=== PATIENT | male | born 1975 | race Caucasian/White ===

== ENCOUNTER 2022-04-16 18:09 | Observation (INO) | payer BC, SELFPAY ==
[2022-04-16] VITALS (8 sets, daily range): BP systolic 154–172; BP diastolic 78–96; PULSE 62–68; RESP 16–18; TEMP 36.8–37.1; O2SAT 94–100; BMI 39.9; BMI 39.6
--- NOTE | 2022-04-16 18:13 | ED.RN ---
CALLED FOR ECG
--- NOTE | 2022-04-16 18:14 | EKG12_ITS ---
Test Reason : CP Blood Pressure : / mmHG Vent. Rate : 074 BPM Atrial Rate : 074 BPM P-R Int : 146 ms QRS Dur : 088 ms QT Int : 396 ms P-R-T Axes : 071 006 038 degrees QTc Int : 439 ms Sinus rhythm with Premature atrial complexes Low voltage QRS (Limb Leads) Abnormal ECG Confirmed by CLINT SPRINGER, PITER ([id number]), editorial cartoonist JOSE G CALLE ([id number]) on 04/18/2022 9:41:12 AM Referred By: Confirmed By:PITER JARAMILLO MD
[2022-04-16 18:30] LABS: Absolute Lymphocyte Count 2.05 X10^3/uL (0.83-4.51); Absolute Neutrophil Count 7.1 X10^3/uL (2.0-7.7); Basophil# 0.04 X10^3/uL; Basophil% 0.4 % (0-1); Eosinophil# 0.07 X10^3/uL; Eosinophils% 0.7 % (0-5); Hemoglobin 15.6 g/dL (13.0-16.5); Lymphocyte # 2.05 X10^3/ul (0.83-4.51); Lymphocyte % 20.1 % (19-41); Mean Corp Hgb Conc 31.2 g/dL (32-36); Mean Corpuscular Hgb 27.4 pg (27.0-32.0); Mean Corpuscular Volume 87.9 fL (80-94); Mean Platelet Vol. 8.4 fl (6.2-12.0); Monocyte# 0.87 X10^3/uL; Monocyte% 8.5 % (0-10); NRBC Flagged by Analyzer 0 % (0-5); Neutrophil # 7.14 X10^3/uL (2.7-7.7); Platelet Count 252 K/mm3 (150-450); RBC Distribution Width CV 13.3 % (11.6-14.6); RBC Distribution Width SD 42.8 fl (35.1-43.9); Red Blood Count 5.69 M/mm3 (4.6-6.2); White Blood Count 10.2 K/mm3 (4.4-11.0)
[2022-04-16 18:48] LABS: Anion Gap 2 (5-15); BUN 10 mg/dL (7-18); Calcium,Total 9.3 mg/dL (8.5-10.1); Chloride 104 mmol/L (98-107); Creatinine, Serum 0.77 mg/dL (0.70-1.30); EST Glomerular Filtration Rate 115 mL/min (>60); Est Glom Filt Rate - Afr Amer 139 mL/min (>60); Estimated Creatinine Clearance 112.27 ml/min; Glucose 140 mg/dL (74-106); Potassium 3.9 mmol/L (3.5-5.1); Sodium Level 138 mmol/L (136-145); Troponin-I HS 32 pg/mL (3.0-78.0)
--- NOTE | 2022-04-16 19:10 | CT_ITS ---
STUDY: CTA CHEST REASON FOR EXAM: Male, 47 years old. cp RADIATION DOSAGE (If Supplied By Facility): CTDIvol = ( 11.48 ) mGy, DLP = ( 581.81 ) mGycm TECHNIQUE: The examination was performed with the intravenous administration of IV 100mL Isovue-370. Post-processing of the angiographic images was performed, with multiplanar reformation and 3D reconstruction. Individualized dose optimization techniques were used for this CT. COMPARISON: None. FINDINGS: Tubes and lines: 1. No life-support noted. CTA: PULMONARY ARTERIES: There is normal configuration and contrast opacification of pulmonary outflow tract, main pulmonary arteries, segmental and intersegmental pulmonary arteries bilaterally without evidence of intraluminal filling defects. AORTIC ARCH: The aortic arch and descending aorta have normal configuration. No evidence of dissection or aneurysmal dilatation. HEART: Cardiac contour is normal. No evidence pericardial effusion. CT CHEST: LUNGS: [Unremarkable. No mass. No consolidation. PLEURAL SPACES: Unremarkable, no effusion or pneumothorax.. MEDIASTINUM AND LYMPH NODES: Unremarkable. No significant adenopathy. BONES: Mild thoracic spondylosis with anterior marginal osteophytes. No acute bony changes or canal stenosis. Postoperative changes consistent with anterior fixation of the lower cervical spine. ABDOMEN: Within normal limits. Other: Incidental note of symmetric masses. IMPRESSIONS: 1. No CTA evidence of pulmonary embolism. 2. No CTA evidence of aortic aneurysm or dissection 3. Normal CT appearance of the heart and pericardium. 4. No focal infiltrate consolidation or effusion noted. 5. Incidental note of symmetric gynecomastia. Electronically Signed: Sammy Barrientos MD at 20:00 EST , CT/CTA Chest W/WO Contrast IMPRESSION: undefined
--- NOTE | 2022-04-16 19:12 | EDS_ITS ---
HPI History of Present Illness Chief Complaint: Chest Pain Informant: patient Onset/Context/Timing Onset: Today Quality: Positive for Heaviness and Pressure Location: Left Parasternal Current Severity: Mild Maximum Severity: Severe Associated Symptoms: Positive for Diaphoresis and Dyspnea Narrative Narrative: Patient presents secondary to chest pain. He had an optometry appointment at 3:00 this afternoon. While sitting in the waiting room he broke out in a sweat. During his exam he developed chest pain that radiated to his back. He states he was so uncomfortable he had to leave his appointment. He denies personal history of cardiac disease. He does have family history in both his father and paternal grandfather. He states his pain is currently improved from the most severe, but is certainly not resolved. PFSH PFSH Medical History no medical history no medical history Allergy/AdvReac Type Severity Reaction Status Date / Time No Known Allergies Allergy Verified 04/16/22 18:11 Social History Smoking Status: Current every day smoker tobacco type: cigarettes ROS ROS ED Constitutional Constitutional ED: Denies chills or fever(s) Eyes Eyes: Denies change in vision or discharge from eye(s) ENT ENT ED: Denies discharge from eye(s), rhinorrhea or sore throat Cardiovascular Cardiovascular: Reports chest pain; Denies palpitations Respiratory/Chest Respiratory/Chest: Reports dyspnea; Denies cough Gastrointestinal Gastrointestinal: Denies abdominal pain, diarrhea, nausea or vomiting Genitourinary Genitourinary ED: Denies dysuria Musculoskeletal Musculoskeletal: Reports back pain; Denies extremity pain Integumentary Denies Abrasions or rash Neurologic Neurologic: Denies headache(s) or weakness Psychiatric Psychiatric: Denies anxiety or depression Allergic/Immunologic Allergic/Immunologic ED: Denies lip swelling or urticaria EXAM Physical Exam Const Vital Signs: 04/16/22 18:11 04/16/22 19:10 04/16/22 19:11 Temperature 98.7 F Temperature Source Temporal Pulse Rate 67 Respiratory Rate 17 Respiratory Effort Short of Breath Blood Pressure 167/96 H Blood Pressure Mean 119 Pulse Ox 98 97 Oxygen Delivery Method Room Air Room Air 04/16/22 19:12 Temperature Temperature Source Pulse Rate 68 Respiratory Rate 16 Respiratory Effort Blood Pressure Blood Pressure Mean Pulse Ox 98 Oxygen Delivery Method Room Air Positive well nourished and well developed General Appearance ED: well developed HEENT Reports normocephalic and head/scalp atraumatic Eyes PERRL and EOMs intact bilaterally Neck supple Chest Wall inspection of chest normal and palpation of chest normal Resp normal respiratory effort and clear to auscultation bilaterally Cardio regular rate and regular rhythm GI normal to inspection, nondistended, normoactive bowel sounds Palpation: soft Extremity normal to inspection Neuro oriented x3 and no sensory deficits noted Sensorium / Orientation: alert Motor Exam: strength 5/5 throughout Psych mental status grossly normal Skin no rashes or lesions noted Heart Score History: Highly Suspicious ECG: Normal Age: >45 - <65 years Risk Factors: No Risk Factors Troponin: </= Normal Limit Score: 3 MDM MDM MDM Narrative Medical decision making narrative: Patient is given aspirin on arrival. EKG, lab work obtained. Given the patient's story he is sent for CTA of the chest. Lab Data Attestation: I reviewed the patient's lab results. Labs: Laboratory Results - last 24 hr 04/16/22 04/16/22 18:24 18:24 WBC 10.2 RBC 5.69 Hgb 15.6 Hct 50.0 MCV 87.9 MCH 27.4 MCHC 31.2 L RDW Std Deviation 42.8 RDW Coeff of Asya 13.3 Plt Count 252 MPV 8.4 Immature Gran % (Auto) 0.300 Neut % (Auto) 70.0 Lymph % (Auto) 20.1 [place] % (Auto) 8.5 Eos % (Auto) 0.7 Baso % (Auto) 0.4 Absolute Neuts (auto) 7.1 Absolute Lymphs (auto) 2.05 Nucleated RBC % 0 Sodium 138 Potassium 3.9 Chloride 104 Carbon Dioxide 32.0 Anion Gap 2 L BUN 10 Creatinine 0.77 Estim Creat Clear Calc 112.27 Est GFR (MDRD) Af Amer 139 Est GFR (MDRD) Non-Af 115 BUN/Creatinine Ratio 13.0 Glucose 140 H Calcium 9.3 Troponin I High Sens 32 Radiography Diagnostic Testing: Clinical Impression(s) from Imaging Studies Chest CTA 04/16/22 19:10 IMPRESSION: undefined CTA chest: IMPRESSIONS: 1. No CTA evidence of pulmonary embolism. 2. No CTA evidence of aortic aneurysm or dissection 3. Normal CT appearance of the heart and pericardium. 4. No focal infiltrate consolidation or effusion noted. 5. Incidental note of symmetric gynecomastia. EKG Initial EKG: Attestation: I personally reviewed and interpreted this EKG as follows: Interpretation: Sinus Rhythm (Sinus at 74 with no acute ischemia.) Treatment and Re-Evaluation Narrative: CBC and chemistry studies unremarkable. Initial troponin is 32. CTA of the chest reveals no evidence of PE or dissection. 2-hour delta troponin is being drawn at this time, however given the patient's concerning story I do feel he warrants observation overnight and possible stress test tomorrow. I will speak with the hospitalist. Discharge Plan Triage Chief Complaint: Chest Pain ED Provider: Octavia Pritchard Dx/Rx/DC Orders Clinical Impression: Chest pain Primary Care Provider: Care Physician,No Primary Referrals: Care Physician,No Primary [Primary Care Provider] - Disposition Disposition: Acute Care Hospital [facility]
[2022-04-16] MEDS: Aspirin 81 MG TAB.CHEW 324 MG PO (19:16)
[2022-04-16 20:49] LABS: Troponin-I HS 29 pg/mL (3.0-78.0)
--- NOTE | 2022-04-16 21:08 | PCM.HP.STD ---
HPI - General General Date of Admission: 04/16/22 Date of Service: 04/16/22 Chief Complaint: Chest pain HPI Narrative PADMINI MOTTA, is a 47 M with a significant history of tobacco abuse and morbid obesity who presents to the emergency department with excruciating substernal chest pain that started about 2 and half hours prior to presentation. Patient went to see an eye doctor. While he was in the waiting room he was very diaphoretic. At the time of his eye examination patient had substernal chest pain that went to his back. He denies any aggravating ameliorating factors to the chest pain. The intensity of pain was about 8 out of 10. The pain was severe for about 20 minutes and then it gradually dissipated. At the emergency department initially he had only some slight chest pain but at the time of hospitalist examination he denied any chest pain. [facility] Medical History no medical history no medical history Home Medications NK 04/16/22 [History Last Taken Unknown] Allergy/AdvReac Type Severity Reaction Status Date / Time No Known Allergies Allergy Verified 04/16/22 18:11 Family History Other Heart disease Surgical History H/O shoulder surgery Social History Smoking Status: Current every day smoker tobacco type: cigarettes ROS ROS Narrative Pertinent positives and pertinent negatives as noted in HPI. All other systems were reviewed and are negative Vital Signs Vital Signs Vital Signs: 04/16/22 18:11 04/16/22 19:10 04/16/22 19:11 Temperature 98.7 F Temperature Source Temporal Pulse Rate 67 Respiratory Rate 17 Respiratory Effort Short of Breath Blood Pressure 167/96 H Blood Pressure Mean 119 Pulse Ox 98 97 Oxygen Delivery Method Room Air Room Air 04/16/22 19:12 04/16/22 20:33 Temperature Temperature Source Pulse Rate 68 62 Respiratory Rate 16 18 Respiratory Effort Blood Pressure 154/78 H Blood Pressure Mean 103 Pulse Ox 98 100 Oxygen Delivery Method Room Air Room Air Weight Weight: 119.3 kg Body Mass Index (BMI) 39.9 Physical Exam Narrative Physical exam: General: Well-nourished, well-developed. Head: Normocephalic, atraumatic, no tenderness Eyes: Vision is grossly intact. EOMI ENT, no trauma, moist mucous membranes, no rhinorrhea Neck: Nontender, No thyromegaly. CVS: Regular rate and rhythm. S1-S2 present. No murmur, gallop or rub. Respiratory : clear to auscultation bilaterally, chest wall nontender, no wheezing Abdomen: Soft, nontender, nondistended, normal bowel sounds, no masses : Deferred Back: Nontender, no CVA tenderness, no midline spinal tenderness, deformities, step-offs Extremities: Nontender full range of motion, no trauma Skin: Normal color, no trauma, abrasions Neuro: Alert, oriented, cranial nerves II through XII grossly intact. Psychiatry: Normal mood. Normal affect. Not depressed. Not anxious. Results Lab / Micro Data Result Diagrams: 04/16/22 18:24 04/16/22 18:24 Labs: Laboratory Results - last 24 hr 04/16/22 18:24: WBC 10.2, RBC 5.69, Hgb 15.6, Hct 50.0, MCV 87.9, MCH 27.4, MCHC 31.2 L, RDW Std Deviation 42.8, RDW Coeff of Asya 13.3, Plt Count 252, MPV 8.4, Immature Gran % (Auto) 0.300, Neut % (Auto) 70.0, Lymph % (Auto) 20.1, [place] % (Auto) 8.5, Eos % (Auto) 0.7, Baso % (Auto) 0.4, Absolute Neuts (auto) 7.1, Absolute Lymphs (auto) 2.05, Nucleated RBC % 0 04/16/22 18:24: Sodium 138, Potassium 3.9, Chloride 104, Carbon Dioxide 32.0, Anion Gap 2 L, BUN 10, Creatinine 0.77, Estim Creat Clear Calc 112.27, Est GFR (MDRD) Af Amer 139, Est GFR (MDRD) Non-Af 115, BUN/Creatinine Ratio 13.0, Glucose 140 H, Calcium 9.3, Troponin I High Sens 32 04/16/22 20:25: Troponin I High Sens 29 Radiology Impression Chest CTA 04/16/22 19:10 IMPRESSION: undefined Assessment & Plan Assessment/Plan (1) Chest pain: PLAN: Plan Chest pain Place on a monitored bed at progressive care unit CT was interpreted by radiologist as no acute process. Per my personal review there was no acute abnormality. Actual EKG tracing was independently visualized. EKG tracing showed Q waves in inferior leads and PACs. ASA 81 mg p.o. daily ordered SL NTG 0.4 mg prn as needed for chest pain ordered Morphine as needed for pain ordered We will check lipid panel. Stat EKG as needed for chest pain Stress test in the AM if the cardiac enzymes are negative High-sensitivity troponin x2 are negative. Trend. Elevated blood pressure diagnosis of hypertension. PRN Hydralazine ordered. DVT prophylaxis: SCD Charges/Coding Visit Charges Inpatient E&M: 22469 Init Hosp L2
--- NOTE | 2022-04-16 21:53 | EKG12_ITS ---
Test Reason : AM EKG Blood Pressure : / mmHG Vent. Rate : 065 BPM Atrial Rate : 065 BPM P-R Int : 144 ms QRS Dur : 086 ms QT Int : 426 ms P-R-T Axes : 050 000 037 degrees QTc Int : 443 ms Normal sinus rhythm Abnormal ECG Confirmed by CLINT SPRINGER, PITER ([id number]), photograph editor JOSE G CALLE ([id number]) on 04/18/2022 9:49:22 AM Referred By: Confirmed By:PITER JARAMILLO MD
[2022-04-17] VITALS (7 sets, daily range): BP systolic 146–154; BP diastolic 91–96; PULSE 61–73; RESP 16–18; TEMP 36.5–36.7; O2SAT 94–97
[2022-04-17 01:15] LABS: Troponin-I HS 33 pg/mL (3.0-78.0)
[2022-04-17] MEDS: Nitroglycerin (INPATIENT USE) 0.4 MG TAB.SUBL SL ×2 (03:50→09:36)
--- NOTE | 2022-04-17 05:55 | EKG12_ITS ---
Test Reason : ADMIT EKG Blood Pressure : / mmHG Vent. Rate : 064 BPM Atrial Rate : 064 BPM P-R Int : 150 ms QRS Dur : 090 ms QT Int : 422 ms P-R-T Axes : 071 003 039 degrees QTc Int : 435 ms Normal sinus rhythm Abnormal ECG Confirmed by CLINT SPRINGER, PITER ([id number]), international editorial producer JOSE G CALLE ([id number]) on 04/18/2022 9:50:51 AM Referred By: Confirmed By:PITER JARAMILLO MD
[2022-04-17] MEDS: Aspirin E.C. 81 MG Tablet PO (06:04)
[2022-04-17 07:21] LABS: Absolute Lymphocyte Count 2.62 X10^3/uL (0.83-4.51); Absolute Neutrophil Count 6.6 X10^3/uL (2.0-7.7); Basophil# 0.04 X10^3/uL; Basophil% 0.4 % (0-1); Eosinophil# 0.13 X10^3/uL; Eosinophils% 1.2 % (0-5); Hematocrit 47.4 % (40-54); Hemoglobin 14.9 g/dL (13.0-16.5); Lymphocyte # 2.62 X10^3/ul (0.83-4.51); Lymphocyte % 24.8 % (19-41); Mean Corp Hgb Conc 31.4 g/dL (32-36); Monocyte# 1.14 X10^3/uL; Monocyte% 10.8 % (0-10); NRBC Flagged by Analyzer 0 % (0-5); Neutrophil # 6.58 X10^3/uL (2.7-7.7); Neutrophil % 62.3 % (47-70); Platelet Count 266 K/mm3 (150-450); RBC Distribution Width CV 13.3 % (11.6-14.6); RBC Distribution Width SD 41.8 fl (35.1-43.9); Red Blood Count 5.51 M/mm3 (4.6-6.2); White Blood Count 10.6 K/mm3 (4.4-11.0)
[2022-04-17 07:52] LABS: Anion Gap 4 (5-15); BUN 11 mg/dL (7-18); BUN/Creat Ratio 17.8 RATIO (10-20); Calcium,Total 8.8 mg/dL (8.5-10.1); Chloride 106 mmol/L (98-107); Cholesterol 190 mg/dL (200); Creatinine, Serum 0.62 mg/dL (0.70-1.30); EST Glomerular Filtration Rate 147 mL/min (>60); Est Glom Filt Rate - Afr Amer 178 mL/min (>60); Estimated Creatinine Clearance 139.44 ml/min; Glucose 113 mg/dL (74-106); High Density Lipoprotein 30 mg/dL; Potassium 3.8 mmol/L (3.5-5.1); Sodium Level 139 mmol/L (136-145); Triglycerides 146 mg/dL; Very Low Density Lipoprotein 29 mg/dL (5-40)
--- NOTE | 2022-04-17 11:06 | STRESSREP_ITS ---
Stress Test Report Date: 04-17-2022 Procedure: Exercise tolerance test/imaging study Indications: Chest pain Consent: Per the patient Procedure: The patient exercised on a Macho protocol for 6 minutes completing Stage II achieving a peak heart rate of 141 bpm (82% predicted maximal heart rate) with resting blood pressure of 160/92 mmHg and a peak blood pressure 230/80 mmHg and a peak MET capacity of 7 METs. The baseline ECG demonstrated normal sinus rhythm. The peak exercise ECG demonstrated no obvious ECG changes. There was an isolated PVC during recovery. Blood pressure response: Resting hypertension-exaggerated response. The functional capacity was considered average. There was no complaint of chest discomfort during exercise or recovery. The examination was discontinued secondary to dyspnea. Impression: 1. Technically adequate (percent predicted maximal heart rate greater than 85%) exercise tolerance test 2. Peak exercise ECG with no obvious ECG changes 3. There was an isolated PVC during recovery 4. Blood pressure response: Resting hypertension-exaggerated response. 5. Nuclear images pending Myocardial perfusion imaging study: Technique: The patient was injected with 14.0 mCi of technetium 99m Cardiolite and subsequently rest SPECT Cardiolite nuclear imaging was obtained in the horizontal long, vertical long, and short axis views. The patient exercised on a Macho protocol for 6 minutes completing Stage II achieving a peak heart rate of 141 bpm (82% predicted maximal heart rate) with resting blood pressure of 160/92 mmHg and a peak blood pressure 230/80 mmHg and a peak MET capacity of 7 METs. The patient was injected with 44.3 mCi of technetium 99m Cardiolite and subsequently stress SPECT Cardiolite nuclear imaging was obtained in the horizontal long, vertical long, and short axis views. A gated Cardiolite study at peak stress was obtained. Interpretation: Rest and stress SPECT Cardiolite nuclear imaging status post realignment, normalization, and attenuation correction, demonstrates the appearance of relative uniform tracer uptake and myocardial perfusion appearing within normal limits. There is end systolic thickening and brightening. The gated Cardiolite study demonstrates myocardial thickening and inward wall motion. The reported LVEF is 66%. Impression: 1. Rest and stress SPECT Cardiolite nuclear imaging demonstrate relative uniform tracer uptake and myocardial perfusion appearing within normal limits. 2. The gated Cardiolite study reports an LVEF of 66%. This note was generated with PicBadges[employer] software. It may contain incorrect words, spelling, and punctuation that were not noted in checking the note before signing.
--- NOTE | 2022-04-17 12:51 | DCINST_ITS ---
Discharge Instructions Diet Discharge Diet: Low fat / Low cholesterol and 2000 mg Sodium Diet Activity Discharge Activity: Return to Normal Activity Follow Up Care Test Results: Test results from this visit will be discussed in further detail at your follow- up appointment, if applicable. Discharge Plan Admission Admit Date/Time: 04/16/22 20:59 Primary Reason for Your Visit: Acute chest pain Attending Provider: Floresita Díaz Primary Care Provider: Xavier Mercado,Radha Primary Consulting Providers: Aris Molina Instructions Additional Instructions / Restrictions: Your stress test was negative Continue to follow a low-salt, low-fat diet. Continue to remain active. You have been prescribed omeprazole for acid reflux type symptoms and also nicotine patch and gum. Discharge Orders/Prescriptions Prescriptions: New nicotine 21 mg/24 hr Patch 24 Hour 21 mg transdermal DAILY 28 Days Qty: 28 0RF pantoprazole 40 mg tablet,delayed release (DR/EC) 40 mg PO BID 30 Days Qty: 60 0RF nicotine (polacrilex) 2 mg gum 2 mg buccal Q2H 30 Days Qty: 100 0RF Referrals / Follow Up: Care Physician,No Primary [Primary Care Provider] - Disposition Disposition (needs filled in before D/C Order can be placed): Home, Self Care
--- NOTE | 2022-04-17 12:55 | CHAPLAIN ---
Type of Pastoral Visit _x__ Initial Visit ___ Follow-up Visit ___ On-call Visit ___ General Patient Visit ___ Spiritual Assessment ___ Family Conference ___ Bereavement ___ Rapid Response ___ Code Blue ___ Other (describe below) Pastoral Care Referral From _x__ Patient ___ Family ___ Nurse ___ Physician ___ College Or University Registrar ___ Mold Forms Builder ___ Other (describe below) Sacrament/Intervention _x__ Active listening ___ Anointing ___ Scientology ___ Bereavement ___ Communion ___ Katerina exploration ___ _x__ Life review ___ Prayer ___ Reconciliation ___ Sacrament of Sick ___ Supportive presence ___ Wedding ___ Other (describe below) Pastoral Comments patient describes his day yesterday with a decision to seek help for chest pain; pt had just received word that his tests are negative and thus he is feeling better/relieved; pt states that now he is focused on eating because it has been 24 hours since he had food; pt admits to need of making some changes in life choices for health improvement; pt states that yesterday he was anxious and that he agreed for spiritual care support; pt however states that he does not practice a katerina as such but was looking for someone to talk to; pt gives some life review; no other needs today
--- NOTE | 2022-04-17 13:00 | PCM.DC.SUM ---
Providers Date of Admission: 04/16/22 Date of Discharge: 04/17/22 Primary Care Physician: No Primary Care Phys Reason For Visit: CHEST PAIN Diagnosis Discharge Diagnosis (1) Chest pain: Status: Acute Code(s): R07.9 - Chest pain, unspecified Medications at Discharge Home Medications nicotine (polacrilex) 2 mg gum 2 mg buccal Q2H 30 days #100 ea 04/17/22 nicotine 21 mg/24 hr daily transdermal patch 21 mg transdermal DAILY 28 days #28 ea 04/17/22 pantoprazole 40 mg tablet,delayed release 40 mg PO BID 30 days #60 tabs 04/17/22 Hospital Course Operations None Procedures Stress test Summary of Care Provided Minutes Spent on Discharge: 25 Hospital Course: 47-year-old male with past medical history of nicotine dependence, morbid obesity who comes in with complaints of chest pain. He complains of intermittent substernal chest pain that however became continues to have hours prior to presentation. Patient was at an ophthalmology appointment when he started having the symptoms. He felt diaphoretic, felt like he was like a bad indigestion/acid reflux. He went to the [place] emergency room and was very crowded, and subsequently went to [place] emergency room where he could not be seen and then he came here. His initial EKG showed Q waves in inferior leads as well as PACs. He was admitted to the progressive care unit and monitored on telemetry. He underwent stress test that was unremarkable. Upon further discussion with patient and mother at bedside, 40 mg p.o. twice daily for about a month. Recommended strongly that he stop smoking. Nicotine patches indescribable discharge. He needs to follow-up with his primary care doctor within 1 week. Physical Exam Narrative Physical exam: General: Alert, Oriented x3, Cooperative, morbidly obese HEENT: Atraumatic Oral: Moist Mucosa Neck: Supple Lungs: Clear to auscultation Cardiovascular: HS I+II, regular, no murmurs Abdomen: Bowel Sounds Present, Soft, Non Tender Extremities: No edema Skin: No rashes, No breakdown Neurological: Grossly intact Psych/Mental Status: Appropriate Weight / BMI Weight Weight: 118.1 kg Body Mass Index (BMI) 39.6 ABG / Lab / Microbiology Data Result Diagrams: 04/17/22 06:33 04/17/22 06:33 Laboratory: Laboratory Results - last 24 hr 04/16/22 18:24: WBC 10.2, RBC 5.69, Hgb 15.6, Hct 50.0, MCV 87.9, MCH 27.4, MCHC 31.2 L, RDW Std Deviation 42.8, RDW Coeff of Asya 13.3, Plt Count 252, MPV 8.4, Immature Gran % (Auto) 0.300, Neut % (Auto) 70.0, Lymph % (Auto) 20.1, [place] % (Auto) 8.5, Eos % (Auto) 0.7, Baso % (Auto) 0.4, Absolute Neuts (auto) 7.1, Absolute Lymphs (auto) 2.05, Nucleated RBC % 0 04/16/22 18:24: Sodium 138, Potassium 3.9, Chloride 104, Carbon Dioxide 32.0, Anion Gap 2 L, BUN 10, Creatinine 0.77, Estim Creat Clear Calc 112.27, Est GFR (MDRD) Af Amer 139, Est GFR (MDRD) Non-Af 115, BUN/Creatinine Ratio 13.0, Glucose 140 H, Calcium 9.3, Troponin I High Sens 32 04/16/22 20:25: Troponin I High Sens 29 04/17/22 00:34: Troponin I High Sens 33 04/17/22 06:33: WBC 10.6, RBC 5.51, Hgb 14.9, Hct 47.4, MCV 86.0, MCH 27.0, MCHC 31.4 L, RDW Std Deviation 41.8, RDW Coeff of Asya 13.3, Plt Count 266, MPV 8.0, Immature Gran % (Auto) 0.500, Neut % (Auto) 62.3, Lymph % (Auto) 24.8, [place] % (Auto) 10.8 H, Eos % (Auto) 1.2, Baso % (Auto) 0.4, Absolute Neuts (auto) 6.6, Absolute Lymphs (auto) 2.62, Nucleated RBC % 0 04/17/22 06:33: Sodium 139, Potassium 3.8, Chloride 106, Carbon Dioxide 29.0, Anion Gap 4 L, BUN 11, Creatinine 0.62 L, Estim Creat Clear Calc 139.44, Est GFR (MDRD) Af Amer 178, Est GFR (MDRD) Non-Af 147, BUN/Creatinine Ratio 17.8, Glucose 113 H, Calcium 8.8, Triglycerides 146, Cholesterol 190, LDL Cholesterol 131 H, VLDL Cholesterol 29, HDL Cholesterol 30 L Radiography Diagnostic Testing: Radiology Impression Chest CTA 04/16/22 19:10 IMPRESSION: undefined D/C Instructions Discharge Diet: Low fat / Low cholesterol and 2000 mg Sodium Diet Meaningful Use Info Meaningful Use Diagnoses (Choose all that apply): None applicable Discharge Plan Admission Admit Date/Time: 04/16/22 20:59 Primary Reason for Your Visit: Acute chest pain Attending Provider: Floresita Díaz Primary Care Provider: Xavier Mercado,Radha Primary Consulting Providers: Aris Molina Instructions Additional Instructions / Restrictions: Your stress test was negative Continue to follow a low-salt, low-fat diet. Continue to remain active. You have been prescribed omeprazole for acid reflux type symptoms and also nicotine patch and gum. Discharge Orders/Prescriptions Prescriptions: New nicotine 21 mg/24 hr Patch 24 Hour 21 mg transdermal DAILY 28 Days Qty: 28 0RF pantoprazole 40 mg tablet,delayed release (DR/EC) 40 mg PO BID 30 Days Qty: 60 0RF nicotine (polacrilex) 2 mg gum 2 mg buccal Q2H 30 Days Qty: 100 0RF Referrals / Follow Up: Care Physician,No Primary [Primary Care Provider] - Disposition Disposition (needs filled in before D/C Order can be placed): Home, Self Care Charges/Coding Visit Charges Inpatient E&M: 51610 Disch Hosp
--- NOTE | 2022-04-17 13:49 | PHA.DC.MR ---
Pharmacy Service has performed discharge medication reconciliation for this patient. The patient's discharge medication list was reviewed for discrepancies and discrepancies were resolved. Patient discharged before I was able to litigation counsel. Medications reviewed. Home Medications nicotine (polacrilex) 2 mg gum 2 mg buccal Q2H 30 days #100 ea 04/17/22 nicotine 21 mg/24 hr daily transdermal patch 21 mg transdermal DAILY 28 days #28 ea 04/17/22 pantoprazole 40 mg tablet,delayed release 40 mg PO BID 30 days #60 tabs 04/17/22
== END 2022-04-17 12:51 | disposition home or self-care (01) ==
LOC: ED 20:28 → PCU 21:16
PROVIDERS: Admitting Provider Hospitalist; Emergency Provider Emergency Medicine; Visit Provider Internal Medicine
DX: R07.89 Other chest pain (principal); E66.01 Morbid (severe) obesity due to excess calories; R06.00 Dyspnea, unspecified; F17.210 Nicotine dependence, cigarettes, uncomplicated; Z68.39 Body mass index [BMI] 39.0-39.9, adult; I10 Essential (primary) hypertension; I49.1 Atrial premature depolarization
CPT/HCPCS: 36415; 71275; 78452; 80048; 80061; 84484; 85025; 93005; 93017; 99221; 99284; A9500; Q9967; A4216; G0378